=== PATIENT | female | born 1935 | race Caucasian/White ===

== ENCOUNTER → 2019-07-09 | Outpatient (CLI) | payer MEDICARE ==
[~2019-07-09] MED LIST: ASPIR 8181 MG PO; CENTRUM SILVER1 EAC3 PO; FUROSEMIDE40 MG PO; GLIMEPIRIDE4 MG PO; LOSARTAN POTAS100 MG PO; NIACIN500 M2 PO; PINDOLOL10 MG PO; PINDOLOL5 MG PO; PRAVASTATIN SOD40 MG PO; VICTOZA 3-0.6 MG/0.1 SQ
--- NOTE | 2019-07-09 13:37 | Diagnostic Imaging Report ---
EXAM: Renal Ultrasound INDICATION: ^[id number] ^1225 ^CYST OF KIDNEY COMPARISON: None TECHNIQUE: Transverse and longitudinal images of the kidneys and bladder were obtained. FINDINGS: Right Kidney: Length: 11.4 cm Appearance: Normal echogenicity. Collecting system: No hydronephrosis Stones: None Cyst/Mass: Upper pole 1.5 x 1.4 x 1.7 cm anechoic simple cyst. Lower pole anechoic simple cysts measure 2.9 x 3.0 x 2.0 cm and 2.1 x 1.7 x 2.5 cm. Left Kidney: Length: 11.0 cm Appearance: Normal echogenicity. Collecting system: No hydronephrosis Stones: None Cyst/Mass: Upper pole anechoic simple cyst measuring 3.8 x 2.4 x 3.2 cm. Bladder: No mass or calculi. Bilateral ureteral jets visualized. IMPRESSION: No renal calculi or hydronephrosis. Bilateral anechoic simple cysts as above. Signed by: Neva Liu MD on 07/09/2019 1:33 PM
== END ==
LOC: US 11:38
PROVIDERS: ATTEND Urology
DX: N28.1 Cyst of kidney, acquired (principal)
CPT/HCPCS: 76770